=== PATIENT | female | born 2000 | race Hispanic/Latino ===

== ENCOUNTER 2021-10-26 20:52 | Emergency (ER) | payer OTHER, SELFPAY ==
[2021-10-26 21:53] LABS: Bilirubin Neg (Negative); Blood, Urine Negative (Negative); Clarity Clear (Clear); Glucose, Urine (Dipstick) Normal (Negative); Ketone, Urine Negative (Negative); Leukocyte 25 (Negative); Nitrite Negative (Negative); Protein, Urine (Dipstick) Negative (Neg-Trace); Urobilinogen Normal mg/dL (Less than 2)
[2021-10-26 22:17] LABS: RBC/HPF None Seen HPF (0-3); Squamous Epithelial 0-3 HPF (0-3); WBC/HPF 0-3 HPF (0-3)
[2021-10-26 22:18] LABS: Bacteria/HPF 1+ HPF (None Seen); Mucous/LPF Rare LPF (<2+)
[2021-10-26] MEDS ORDERED: Acetaminophen 325 MG TAB ONE (22:39)
[2021-10-27 16:22] LABS: Chlamydia by PCR Not Detected (NotDetected); GC by PCR Not Detected (NotDetected)
== END 2021-10-26 23:30 | disposition home or self-care (01) ==
LOC: CSHERS 20:52
DX: O98.811 Other maternal infectious and parasitic diseases complicating pregnancy, first trimester (principal); B37.9 Candidiasis, unspecified; O99.331 Smoking (tobacco) complicating pregnancy, first trimester; F17.210 Nicotine dependence, cigarettes, uncomplicated; O99.891 Other specified diseases and conditions complicating pregnancy; R10.2 Pelvic and perineal pain; Z3A.12 12 weeks gestation of pregnancy
CPT/HCPCS: 81003; 81015; 87480; 87491; 87510; 87591; 87660; 99284

== ENCOUNTER 2021-12-22 12:15 | Outpatient (CLI) | payer OTHER | END 2021-12-22 12:16 | disposition home or self-care (01) | LOC: CSHULT 12:15 | PROVIDERS: ATTEND Family Medicine | DX: Z34.82 Encounter for supervision of other normal pregnancy, second trimester (principal); Z3A.20 20 weeks gestation of pregnancy | CPT/HCPCS: 76805 ==

== ENCOUNTER 2022-02-15 01:04 | Day surgery (SDC) | payer OTHER ==
[2022-02-15 01:47] VITALS: BMI 25.4
[2022-02-15 03:01] LABS: Bilirubin Neg (Negative); Blood, Urine Negative (Negative); CAUTI Indications for Culture Pregnancy; Clarity Clear (Clear); Glucose, Urine (Dipstick) 100 mg/dL (Negative); Ketone, Urine Negative (Negative); Leukocyte 25 (Negative); Nitrite Negative (Negative); Protein, Urine (Dipstick) Negative (Neg-Trace); Urobilinogen Normal mg/dL (Less than 2); pH, Urine 6.5 (5.0-9.0)
[2022-02-15 03:12] LABS: Urine Culture Reflex Yes Yes
[2022-02-15 03:14] LABS: Bacteria/HPF Rare-Few HPF (None Seen); RBC/HPF 0-3 HPF (0-3); Squamous Epithelial 0-3 HPF (0-3); WBC/HPF 0-3 HPF (0-3)
[2022-02-15] MEDS ORDERED: Lactated Ringer's 1,000 ML IV SCH (03:45)
[2022-02-15 04:51] LABS: FFN Internal QC Analyzer PASS (PASS); FFN Internal QC Cassette PASS (PASS); Fetal Fibronectin Negative (Negative)
[2022-02-15 05:27] LABS: #Eosinphils 0.1 10x3/uL (0.0-0.5); #Neutrophils 8.7 10x3/uL (1.5-8.4); %Basophils 0.3 % (0.0-2.0); %Eosinophils 0.8 % (0.0-6.0); %Lymphocytes 19.4 % (18.0-47.0); %Monocytes 8.4 % (0.0-10.0); %Neutrophils 70.3 % (40.0-75.0); Hemoglobin 10.6 g/dL (12.0-15.5); Mean Corpuscular HGB CONC 34.6 g/dL (32.0-36.0); Mean Corpuscular Hemoglobin 30.9 pg (27.0-33.0); Mean Corpuscular Volume 89.2 fl (81.6-98.3); Platelet Count 243 10x3/uL (150-450); RBC Distribution Width 13.1 % (11.5-14.5); Red Blood Cell (RBC) Count 3.43 10x6/uL (3.90-5.03); White Blood Cell (WBC) Count 12.3 10x3/uL (3.5-10.5)
[2022-02-15 05:48] LABS: ALT (SGPT) Less than 6 U/L (8-55); AST (SGOT) 9 U/L (5-34); Albumin 3.4 g/dL (3.5-5.0); Alkaline Phosphatase 79 U/L (40-110); Anion Gap 13 mmol/L (10-20); BUN (Urea Nitrogen) 8 mg/dL (7.0-18.7); Bilirubin, Total 0.2 mg/dL (0.2-1.2); Calc. Creatinine Clearance 161 mL/min (70-130); Calcium 9.1 mg/dL (7.8-10.44); Carbon Dioxide 19 mmol/L (22-29); Chloride 108 mmol/L (98-107); Estimated GFR 135; Glucose 103 mg/dL (70-105); Potassium 3.4 mmol/L (3.5-5.1); Protein, Total 6.4 g/dL (6.0-8.3); Sodium 137 mmol/L (136-145)
[2022-02-15] MEDS ORDERED: Potassium Chloride 20 MEQ TAB PO SCH (08:00)
== END 2022-02-15 08:00 | disposition home or self-care (01) ==
LOC: CSHLD/OP 01:04
PROVIDERS: ATTEND Family Medicine
DX: O47.03 False labor before 37 completed weeks of gestation, third trimester (principal); O99.283 Endocrine, nutritional and metabolic diseases complicating pregnancy, third trimester; E87.6 Hypokalemia; Z3A.28 28 weeks gestation of pregnancy
CPT/HCPCS: 36415; 80053; 81001; 82731; 85025; 87086; 99285

== ENCOUNTER 2022-03-25 15:07 | Observation (INO) | payer OTHER, SELFPAY ==
[2022-03-25] MEDS ORDERED: hydrALAZINE 20 MG/ML VIAL SLOW IVP PRN (16:08)
[2022-03-25] MEDS ORDERED: Lactated Ringer's 1,000 ML IV SCH (16:15)
[2022-03-25 17:19] LABS: Bilirubin Neg (Negative); Blood, Urine Negative (Negative); CAUTI Indications for Culture Pregnancy; Clarity Clear (Clear); Glucose, Urine (Dipstick) Normal (Negative); Ketone, Urine Negative (Negative); Leukocyte Negative (Negative); Nitrite Negative (Negative); Protein, Urine (Dipstick) Negative (Neg-Trace); Specific Gravity, Urine 1.005 (1.005-1.030); Urobilinogen Normal mg/dL (Less than 2)
[2022-03-25 17:20] LABS: Urine Culture Reflex Yes Yes
[2022-03-25 17:21] LABS: #Eosinphils 0.1 10x3/uL (0.0-0.5); #Monocytes 1.1 10x3/uL (0.0-1.1); #Neutrophils 8.5 10x3/uL (1.5-8.4); %Basophils 0.2 % (0.0-2.0); %Eosinophils 0.7 % (0.0-6.0); %Lymphocytes 15.5 % (18.0-47.0); %Monocytes 9.2 % (0.0-10.0); %Neutrophils 73.6 % (40.0-75.0); Mean Corpuscular HGB CONC 35.1 g/dL (32.0-36.0); Mean Corpuscular Hemoglobin 30.7 pg (27.0-33.0); Mean Corpuscular Volume 87.4 fl (81.6-98.3); Platelet Count 265 10x3/uL (150-450); Red Blood Cell (RBC) Count 3.58 10x6/uL (3.90-5.03); White Blood Cell (WBC) Count 11.5 10x3/uL (3.5-10.5)
[2022-03-25 17:38] LABS: ALT (SGPT) 7 U/L (8-55); AST (SGOT) 13 U/L (5-34); Albumin 3.6 g/dL (3.5-5.0); Alkaline Phosphatase 93 U/L (40-110); Anion Gap 16 mmol/L (10-20); BUN (Urea Nitrogen) 10 mg/dL (7.0-18.7); Bilirubin, Total 0.7 mg/dL (0.2-1.2); Calc. Creatinine Clearance 0 mL/min (70-130); Calcium 9.1 mg/dL (7.8-10.44); Carbon Dioxide 19 mmol/L (22-29); Chloride 104 mmol/L (98-107); Estimated GFR 131; Globulin 2.7 g/dL (2.4-3.5); Glucose 97 mg/dL (70-105); Potassium 4.1 mmol/L (3.5-5.1); Protein, Total 6.3 g/dL (6.0-8.3); Sodium 135 mmol/L (136-145)
[2022-03-25 17:43] LABS: Bacteria/HPF Rare-Few HPF (None Seen); RBC/HPF None Seen HPF (0-3); Squamous Epithelial 0-3 HPF (0-3); WBC/HPF 0-3 HPF (0-3)
[2022-03-25] MEDS ORDERED: Ondansetron PF 4 MG/2 ML Vial IVP PRN (18:44)
[2022-03-25] MEDS ORDERED: Acetaminophen 325 MG TAB PO PRN (18:44)
[2022-03-25] MEDS ORDERED: Ondansetron ODT 4 MG TAB PO PRN (18:44)
[2022-03-25 19:12] VITALS: BMI 31.4
[2022-03-25 20:33] LABS: Troponin I Less than 0.010 ng/mL (< 0.028)
[2022-03-25] MEDS: Lactated Ringer's 1,000 ML IV SCH (22:45)
[2022-03-26] MEDS: Lactated Ringer's 1,000 ML IV SCH ×3 (00:47→09:21)
[2022-03-26 05:10] LABS: #Eosinphils 0.1 10x3/uL (0.0-0.5); #Monocytes 0.7 10x3/uL (0.0-1.1); #Neutrophils 5.3 10x3/uL (1.5-8.4); %Basophils 0.2 % (0.0-2.0); %Eosinophils 1.2 % (0.0-6.0); %Lymphocytes 24.7 % (18.0-47.0); %Monocytes 8.9 % (0.0-10.0); %Neutrophils 64.3 % (40.0-75.0); Hemoglobin 9.9 g/dL (12.0-15.5); Mean Corpuscular HGB CONC 34.4 g/dL (32.0-36.0); Mean Corpuscular Hemoglobin 30.6 pg (27.0-33.0); Mean Corpuscular Volume 88.9 fl (81.6-98.3); Mean Platelet Volume 10.4 fl (7.4-10.4); Platelet Count 214 10x3/uL (150-450); RBC Distribution Width 13.1 % (11.5-14.5); Red Blood Cell (RBC) Count 3.24 10x6/uL (3.90-5.03); White Blood Cell (WBC) Count 8.2 10x3/uL (3.5-10.5)
[2022-03-26 05:28] LABS: ALT (SGPT) 6 U/L (8-55); AST (SGOT) 10 U/L (5-34); Alkaline Phosphatase 78 U/L (40-110); Anion Gap 12 mmol/L (10-20); BUN (Urea Nitrogen) 9 mg/dL (7.0-18.7); Bilirubin, Total 0.4 mg/dL (0.2-1.2); Calc. Creatinine Clearance 229 mL/min (70-130); Calcium 8.5 mg/dL (7.8-10.44); Carbon Dioxide 17 mmol/L (22-29); Chloride 109 mmol/L (98-107); Estimated GFR 137; Globulin 2.5 g/dL (2.4-3.5); Glucose 88 mg/dL (70-105); Potassium 3.4 mmol/L (3.5-5.1); Protein, Total 5.5 g/dL (6.0-8.3); Sodium 135 mmol/L (136-145)
[2022-03-26 09:07] VITALS: BP 99/51; TEMP 98.5
== END 2022-03-26 13:00 | disposition home or self-care (01) ==
LOC: CSHERS 15:07 → CSHLD/OP 15:24 → INTOOBSV 19:54 → CSHLD 19:54 → CSHANTE 23:27
PROVIDERS: ADMIT Family Medicine; ATTEND Family Medicine
DX: O99.891 Other specified diseases and conditions complicating pregnancy (principal); R00.0 Tachycardia, unspecified; Z3A.34 34 weeks gestation of pregnancy
CPT/HCPCS: 36415; 76819; 80053; 81001; 83880; 84436; 84443; 84484; 85025; 87086; 93005; 93010; 93306; 99285; J7120

== ENCOUNTER 2022-04-16 17:41 | Day surgery (SDC) | payer MEDICAID ==
[2022-04-16 18:06] VITALS: BMI 27.5
[2022-04-16 19:54] LABS: Fetal Membranes Rupture No Membranes Rupture (No Rupture)
== END 2022-04-16 22:48 | disposition home or self-care (01) ==
LOC: CSHLD/OP 17:41
PROVIDERS: ATTEND Family Medicine
DX: O47.1 False labor at or after 37 completed weeks of gestation (principal); Z3A.37 37 weeks gestation of pregnancy
CPT/HCPCS: 84112; 99284

== ENCOUNTER 2022-04-22 23:37 | Day surgery (SDC) | payer MEDICAID, SELFPAY ==
[2022-04-23 00:07] VITALS: BMI 28.1
[2022-04-23] MEDS ORDERED: hydrALAZINE 20 MG/ML VIAL SLOW IVP PRN (00:51)
[2022-04-23] MEDS ORDERED: Acetaminophen 500 MG TAB PO SCH (01:45)
== END 2022-04-23 02:57 | disposition home or self-care (01) ==
LOC: CSHLD/OP 23:37
PROVIDERS: ATTEND Family Medicine
DX: O47.1 False labor at or after 37 completed weeks of gestation (principal); Z79.899 Other long term (current) drug therapy; Z3A.38 38 weeks gestation of pregnancy
CPT/HCPCS: 99283

== ENCOUNTER 2022-04-25 09:45 | Inpatient (IN) | payer MEDICAID, SELFPAY ==
[2022-04-25] MEDS ORDERED: Lidocaine 1% (PF) 30 ML VIAL SC PRN (11:07)
[2022-04-25] MEDS ORDERED: Methylergonovine 0.2 MG/ML VIAL IM PRN (11:07)
[2022-04-25] MEDS ORDERED: Promethazine HCl 25 MG/ML VIAL IM PRN ×3 (11:07→19:13)
[2022-04-25] MEDS ORDERED: Misoprostol 200 MCG TAB PR PRN (11:07)
[2022-04-25] MEDS ORDERED: Butorphanol Tartrate 1 MG/ML VIAL SLOW IVP PRN (11:07)
[2022-04-25] MEDS ORDERED: Acetaminophen/Codeine 30-300mg Tablet PO PRN (11:07)
[2022-04-25] MEDS ORDERED: HYDROcodone/Acetaminophen 5/325 mg Tablet PO PRN ×2 (11:07→19:13)
[2022-04-25] MEDS ORDERED: Ibuprofen 800 MG TAB PO PRN (11:07)
[2022-04-25] MEDS ORDERED: Tranexamic Acid 1,000 MG in Sodium Chloride 0.9% 250 ML 250 ML IVPB PRN (11:07)
[2022-04-25] MEDS ORDERED: Ondansetron PF 4 MG/2 ML Vial IVP PRN ×3 (11:07→19:13)
[2022-04-25] MEDS ORDERED: Acetaminophen 500 MG TAB PO PRN (11:07)
[2022-04-25] MEDS ORDERED: Carboprost 250 MCG/ML AMP IM PRN (11:07)
[2022-04-25] MEDS ORDERED: Diphenoxylate HCl/Atropine Tablet PO PRN (11:07)
[2022-04-25] MEDS ORDERED: hydrALAZINE 20 MG/ML VIAL SLOW IVP PRN ×2 (11:07→19:13)
[2022-04-25] MEDS ORDERED: NS w/ Oxytocin 30 units 500 ML IV SCH ×3 (11:15→19:13)
[2022-04-25] MEDS ORDERED: Lactated Ringer's 1,000 ML IV SCH (11:15)
[2022-04-25 12:14] LABS: Hemoglobin 12.2 g/dL (12.0-15.5); Mean Corpuscular HGB CONC 34.9 g/dL (32.0-36.0); Mean Corpuscular Hemoglobin 30.9 pg (27.0-33.0); Mean Corpuscular Volume 88.6 fl (81.6-98.3); Mean Platelet Volume 12.1 fl (7.4-10.4); Platelet Count 191 10x3/uL (150-450); RBC Distribution Width 13.8 % (11.5-14.5); Red Blood Cell (RBC) Count 3.95 10x6/uL (3.90-5.03); White Blood Cell (WBC) Count 9.2 10x3/uL (3.5-10.5)
[2022-04-25] MEDS ORDERED: Fentanyl 2 mcg/Bup 0.1% Cadd 100 ML ONE (12:44)
[2022-04-25 12:45] LABS: Syphilis Antibody Nonreactive (Nonreactive); Syphilis Antibody Index 0.09 S/CO (<1.00 Non-Reactive)
[2022-04-25 12:46] LABS: HBSAg Index 0.17 S/CO (0-0.99); Hep B Surf Ag Non-Reactive S/CO (NonReactive)
[2022-04-25] MEDS ORDERED: Moisturizing Cream (Eucerin) 113 GM JAR TOP PRN (12:49)
[2022-04-25] MEDS ORDERED: diphenhydrAMINE 50 MG/ML VIAL IVP PRN (12:49)
[2022-04-25] MEDS ORDERED: Naloxone HCl 0.4 mg/ml Vial IVP PRN ×2 (12:49)
[2022-04-25] MEDS ORDERED: Acetaminophen 325 MG TAB PO PRN (12:49)
[2022-04-25] MEDS ORDERED: ePHEDrine Sulfate 50 MG/10 ML VIAL SLOW IVP PRN (12:49)
[2022-04-25] MEDS ORDERED: Lactated Ringer's 500 ML IV PRN (12:49)
[2022-04-25] MEDS ORDERED: Fentanyl 2 mcg/Bupivacaine 0.1% Cassette 100 ML EPIDURAL SCH (13:00)
[2022-04-25] MEDS ORDERED: Communication Order-Pharmacy FS SCH (13:00)
[2022-04-25] MEDS ORDERED: Bupivacaine HCl 0.5%/Epinephrine 1:200,000/PF 30 ml Vial ONE (13:00)
[2022-04-25 17:20] VITALS: BMI 28.3
[2022-04-25 19:10] LABS: SARS-CoV-2 NAA Rapid Test Not Detected (NotDetected)
[2022-04-25] MEDS ORDERED: Boostrix 0.5 ML (Tdap) VIAL (>/=7 yrs of age) IM ONE (19:13)
[2022-04-25] MEDS ORDERED: Lanolin Ointment 7 GM TUBE TOP PRN (19:13)
[2022-04-25] MEDS ORDERED: diphenhydrAMINE 25 MG CAP PO PRN (19:13)
[2022-04-25] MEDS ORDERED: Bisacodyl 10 MG SUPP PR PRN (19:13)
[2022-04-25] MEDS ORDERED: Milk Of Magnesia 30 ML UDCUP PO PRN (19:13)
[2022-04-25] MEDS ORDERED: Benzocaine-Menthol 82.5 ML CAN TOP PRN (19:13)
[2022-04-25] MEDS: Ibuprofen 800 MG TAB PO SCH (21:15)
[2022-04-25] MEDS: Docusate 100 MG CAP PO SCH (21:15)
[2022-04-26] MEDS: Ibuprofen 800 MG TAB PO SCH ×2 (05:26→13:43)
[2022-04-26] MEDS ORDERED: Prenatal Vitamin 1 TAB PO SCH (09:00)
[2022-04-26] MEDS: Ferrous Sulfate 325 MG TAB PO SCH ×2 (09:17→15:12)
[2022-04-26] MEDS: Docusate 100 MG CAP PO SCH (09:17)
[2022-04-26 11:31] VITALS: BP 116/70; TEMP 97.9
== END 2022-04-26 18:10 | disposition home or self-care (01) | DRG 807 ==
LOC: CSHLD/OP 09:45 → CSHLD 11:46 → CSHPP 18:44
PROVIDERS: ADMIT Family Medicine; ATTEND Family Medicine
PROC: 10E0XZZ Delivery of Products of Conception, External Approach (ICD-10-PCS; principal; 2022-04-25)
PROC: 0UQMXZZ Repair Vulva, External Approach (ICD-10-PCS; 2022-04-25)
DX: O42.02 Full-term premature rupture of membranes, onset of labor within 24 hours of rupture (principal); Z37.0 Single live birth; Z20.822 Contact with and (suspected) exposure to COVID-19; Z3A.38 38 weeks gestation of pregnancy; O70.0 First degree perineal laceration during delivery
CPT/HCPCS: 51702; 85027; 86780; 86850; 86900; 86901; 87340; 99285; U0002

== ENCOUNTER 2023-02-06 13:01 | Outpatient (CLI) | payer OTHER | END 2023-02-06 13:02 | disposition home or self-care (01) | LOC: CSHULT 13:01 | PROVIDERS: ATTEND Family Medicine | DX: Z34.82 Encounter for supervision of other normal pregnancy, second trimester (principal); Z3A.20 20 weeks gestation of pregnancy | CPT/HCPCS: 76805 ==

== ENCOUNTER 2023-05-24 20:49 | Day surgery (SDC) | payer OTHER ==
[2023-05-24 21:11] VITALS: BMI 26.7
[2023-05-24] MEDS ORDERED: hydrALAZINE 20 MG/ML VIAL SLOW IVP PRN (21:23)
[2023-05-24] MEDS: Morphine 4 MG/ML VIAL IM PRN (21:41)
[2023-05-24 21:57] LABS: Fetal Membranes Rupture No Membranes Rupture (No Rupture)
== END 2023-05-24 23:45 | disposition home or self-care (01) ==
LOC: CSHLD/OP 20:49
PROVIDERS: ATTEND Family Medicine
DX: O47.03 False labor before 37 completed weeks of gestation, third trimester (principal); O99.013 Anemia complicating pregnancy, third trimester; Z3A.36 36 weeks gestation of pregnancy
CPT/HCPCS: 84112; 99283; J2270

== ENCOUNTER 2023-06-03 13:21 | Day surgery (SDC) | payer OTHER ==
[2023-06-03] MEDS ORDERED: hydrALAZINE 20 MG/ML VIAL SLOW IVP PRN (14:00)
== END 2023-06-03 16:25 | disposition home or self-care (01) ==
LOC: CSHLD/OP 13:21
PROVIDERS: ATTEND Family Medicine
DX: O47.1 False labor at or after 37 completed weeks of gestation (principal); O09.893 Supervision of other high risk pregnancies, third trimester; Z79.899 Other long term (current) drug therapy; Z3A.37 37 weeks gestation of pregnancy

== ENCOUNTER 2023-06-07 09:52 | Inpatient (IN) | payer MEDICAID, OTHER ==
[~2023-06-07 09:52] MED LIST: Bupivacaine 0.25% HCL 30 ML VIAL ONE; Bupivacaine PF 0.5% 30 ML VIAL ONE
[2023-06-07] MEDS ORDERED: Methylergonovine 0.2 MG/ML VIAL IM PRN (11:16)
[2023-06-07] MEDS ORDERED: Ondansetron PF 4 MG/2 ML Vial IVP PRN ×3 (11:16→18:53)
[2023-06-07] MEDS ORDERED: Promethazine HCl 25 MG/ML VIAL IM PRN ×3 (11:16→18:53)
[2023-06-07] MEDS ORDERED: hydrALAZINE 20 MG/ML VIAL SLOW IVP PRN ×2 (11:16→18:53)
[2023-06-07] MEDS ORDERED: Misoprostol 200 MCG TAB PR PRN (11:16)
[2023-06-07] MEDS ORDERED: fentaNYL 50 mcg/mL 1 mL Vial SLOW IVP PRN (11:16)
[2023-06-07] MEDS ORDERED: HYDROcodone/Acetaminophen 5/325 mg Tablet PO PRN (11:16)
[2023-06-07] MEDS ORDERED: Carboprost 250 MCG/ML AMP IM PRN (11:16)
[2023-06-07] MEDS ORDERED: Ibuprofen 800 MG TAB PO PRN (11:16)
[2023-06-07] MEDS ORDERED: Diphenoxylate HCl/Atropine Tablet PO PRN (11:16)
[2023-06-07] MEDS ORDERED: Tranexamic Acid 1,000 MG/10 ML VIAL IVP PRN (11:16)
[2023-06-07] MEDS ORDERED: Lidocaine 1% (PF) 30 ML VIAL SC PRN (11:16)
[2023-06-07] MEDS ORDERED: Acetaminophen 500 MG TAB PO PRN (11:16)
[2023-06-07 11:23] VITALS: BMI 28.3
[2023-06-07] MEDS ORDERED: Naloxone HCl 0.4 mg/ml Vial IVP PRN ×2 (11:28)
[2023-06-07] MEDS ORDERED: Acetaminophen 325 MG TAB PO PRN (11:28)
[2023-06-07] MEDS ORDERED: ePHEDrine Sulfate 50 MG/10 ML VIAL SLOW IVP PRN (11:28)
[2023-06-07] MEDS ORDERED: Moisturizing Cream (Eucerin) 113 GM JAR TOP PRN (11:28)
[2023-06-07] MEDS ORDERED: Lactated Ringer's 500 ML IV PRN (11:28)
[2023-06-07] MEDS ORDERED: diphenhydrAMINE 50 MG/ML VIAL IVP PRN (11:28)
[2023-06-07] MEDS ORDERED: Communication Order-Pharmacy FS SCH (11:30)
[2023-06-07] MEDS ORDERED: fentaNYL 2 mcg/Ropivacaine 0.2% Epidural 100 ML CADD EPIDURAL SCH (11:30)
[2023-06-07] MEDS ORDERED: Oxytocin 30 units/NS 500 ML 500 ML IV SCH ×3 (11:30)
[2023-06-07 11:34] LABS: Hemoglobin 11.7 g/dL (12.0-15.5); Mean Corpuscular HGB CONC 34.4 g/dL (32.0-36.0); Mean Corpuscular Hemoglobin 30.6 pg (27.0-33.0); Mean Platelet Volume 11.6 fl (7.4-10.4); Platelet Count 207 10x3/uL (150-450); RBC Distribution Width 13.3 % (11.5-14.5); Red Blood Cell (RBC) Count 3.82 10x6/uL (3.90-5.03); White Blood Cell (WBC) Count 9.6 10x3/uL (3.5-10.5)
[2023-06-07] MEDS: fentaNYL/Ropivacaine Epidural 100 ML ONE (12:00)
[2023-06-07 12:10] LABS: HBSAg Index 0.23 S/CO (0-0.99); Hep B Surf Ag - L&D Non-Reactive S/CO (NonReactive)
[2023-06-07 12:11] LABS: Syphilis Antibody Nonreactive (Nonreactive); Syphilis Antibody Index 0.11 S/CO (<1.00 Non-Reactive)
[2023-06-07] MEDS ORDERED: Milk Of Magnesia 30 ML UDCUP PO PRN (18:53)
[2023-06-07] MEDS ORDERED: Bisacodyl 10 MG SUPP PR PRN (18:53)
[2023-06-07] MEDS ORDERED: diphenhydrAMINE 25 MG CAP PO PRN (18:53)
[2023-06-07] MEDS: Bicitra 30 ML UDCUP ONE ×2 (20:38→20:39)
[2023-06-07] MEDS: Docusate 100 MG CAP PO SCH (21:08)
[2023-06-07] MEDS: Ibuprofen 800 MG TAB PO SCH (21:08)
[2023-06-07] MEDS: Benzocaine-Menthol 82.5 ML CAN TOP PRN (21:10)
[2023-06-08] MEDS: HYDROcodone/Acetaminophen 5/325 mg Tablet PO PRN (01:41)
[2023-06-08] MEDS: Ferrous Sulfate 325 MG TAB PO SCH (09:16)
[2023-06-08] MEDS: Boostrix 0.5 ML (Tdap) VIAL (>/=7 yrs of age) IM ONE (09:17)
[2023-06-08] MEDS: Prenatal Vitamin 1 TAB PO SCH (09:22)
[2023-06-08 17:03] VITALS: BP 116/57; TEMP 97.8
== END 2023-06-08 18:51 | disposition home or self-care (01) | DRG 807 ==
LOC: CSHLD 09:52 → CSHPP 20:08
PROVIDERS: ADMIT Family Medicine; ATTEND Family Medicine
PROC: 10E0XZZ Delivery of Products of Conception, External Approach (ICD-10-PCS; principal; 2023-06-07)
PROC: 0UQMXZZ Repair Vulva, External Approach (ICD-10-PCS; 2023-06-07)
PROC: 0HQ9XZZ Repair Perineum Skin, External Approach (ICD-10-PCS; 2023-06-07)
PROC: 10907ZC Drainage of Amniotic Fluid, Therapeutic from Products of Conception, Via Natural or Artificial Opening (ICD-10-PCS; 2023-06-07)
DX: O70.0 First degree perineal laceration during delivery (principal); Z37.0 Single live birth; Z3A.38 38 weeks gestation of pregnancy
CPT/HCPCS: 51702; 85027; 86780; 86850; 86900; 86901; 87340; J0665